=== PATIENT | male | born 1945 | race Caucasian/White ===

== ENCOUNTER 2020-11-17 07:39 | Outpatient (CLI) | payer MEDICARE, BC | END 2020-11-17 07:40 | disposition home or self-care (01) | LOC: CSHMRI 07:39 | PROVIDERS: ATTEND Urology | DX: R97.20 Elevated prostate specific antigen [PSA] (principal); C18.3 Malignant neoplasm of hepatic flexure; R31.0 Gross hematuria; Z98.890 Other specified postprocedural states; K62.9 Disease of anus and rectum, unspecified; N42.9 Disorder of prostate, unspecified; K76.9 Liver disease, unspecified; K43.9 Ventral hernia without obstruction or gangrene | CPT/HCPCS: 72197; 74178 ==